=== PATIENT | male | born 1995 | race Hispanic/Latino ===

== ENCOUNTER 2021-02-09 20:30 | Inpatient (IN) | payer SELFPAY ==
[2021-02-09 22:05] LABS: Hemoglobin 13.3 g/dL (14.0-18.0); INR-International Normal Ratio 2.8; Mean Corpuscular Hemoglobin 33.5 pg (27.0-31.0); Mean Corpuscular Volume 98.7 fL (78.0-98.0); Prothrombin Time 30.4 sec (12.0-14.7); RBC Distribution Width 15.2 % (11.5-14.5); Red Blood Cell (RBC) Count 3.96 mill/uL (4.70-6.10); White Blood Cell (WBC) Count 15.1 thou/uL (4.8-10.8)
[2021-02-09 22:06] LABS: PTT 55.4 sec (22.9-36.1)
[2021-02-09 22:12] LABS: Band 31 % (5-11); CRP (Inflammatory) 9.01 mg/dL (= or < 0.5); Eosinophils 1 % (0-10); Lymphocytes 9 % (21-51); MDiff Complete? YES; Mean Platelet Volume 9.4 fL (7.4-10.4); Metamyelocyte 5 % (0-0); Monocytes 4 % (0-10); Neutrophil 50 % (42-75); Platelet Count 34 thou/uL (130-400); Platelet Morphology Comment Appears Decreased
[2021-02-09 22:13] LABS: ALT (SGPT) 127 U/L (8-55); AST (SGOT) 127 U/L (5-34); Albumin 2.2 g/dL (3.5-5.0); Alkaline Phosphatase 171 U/L (40-110); Anion Gap 12 mmol/L (10-20); BUN (Urea Nitrogen) 18 mg/dL (8.9-20.6); Bilirubin, Total 6.7 mg/dL (0.2-1.2); Calc. Creatinine Clearance 0 mL/min (70-130); Calcium 7.4 mg/dL (7.8-10.44); Carbon Dioxide 18 mmol/L (22-29); Chloride 100 mmol/L (98-107); Globulin 5.3 g/dL (2.4-3.5); Glucose 90 mg/dL (70-105); Protein, Total 7.5 g/dL (6.0-8.3); Sodium 125 mmol/L (136-145)
[2021-02-09] MEDS ORDERED: Dexamethasone 10 MG/ML VIAL ONE (22:21)
[2021-02-09] MEDS ORDERED: Ketorolac Tromethamine 30 MG/ML VIAL ONE (23:15)
[2021-02-09] MEDS ORDERED: cefTRIAXone\\ROCEPHIN 2 GM VIAL ONE (23:15)
[2021-02-09] MEDS ORDERED: Ondansetron PF 4 MG/2 ML Vial ONE (23:15)
[2021-02-10] MEDS ORDERED: Ondansetron PF 4 MG/2 ML Vial IVP PRN (00:22)
[2021-02-10] MEDS ORDERED: Guaifenesin DM 100-10/5 ML UDCUP PO PRN (00:22)
[2021-02-10] MEDS ORDERED: Bisacodyl 5 MG TAB PO PRN (00:22)
[2021-02-10 00:26] VITALS: BMI 32.6
[2021-02-10] MEDS ORDERED: Calcium Gluconate 4.6 MEQ in Sodium Chloride 0.9% 100 ML IVPB SCH (00:27)
[2021-02-10] MEDS ORDERED: Sodium Bicarbonate 150 MEQ in Dextrose 5% in Water 1,000 ML IV SCH ×2 (01:00→11:15)
[2021-02-10 06:45] LABS: Hemoglobin 12.4 g/dL (14.0-18.0); Mean Corpuscular HGB CONC 33.5 g/dL (32.0-36.0); Mean Corpuscular Hemoglobin 33.3 pg (27.0-31.0); Mean Corpuscular Volume 99.4 fL (78.0-98.0); RBC Distribution Width 15.3 % (11.5-14.5); Red Blood Cell (RBC) Count 3.72 mill/uL (4.70-6.10); White Blood Cell (WBC) Count 9.8 thou/uL (4.8-10.8)
[2021-02-10 07:02] LABS: ALT (SGPT) 102 U/L (8-55); AST (SGOT) 105 U/L (5-34); Albumin 1.8 g/dL (3.5-5.0); Alkaline Phosphatase 117 U/L (40-110); Anion Gap 13 mmol/L (10-20); BUN (Urea Nitrogen) 19 mg/dL (8.9-20.6); Bilirubin, Total 5.8 mg/dL (0.2-1.2); CK (CPK) 660 U/L (30-200); Calc. Creatinine Clearance 155 mL/min (70-130); Calcium 7.3 mg/dL (7.8-10.44); Carbon Dioxide 18 mmol/L (22-29); Chloride 101 mmol/L (98-107); Globulin 4.4 g/dL (2.4-3.5); Glucose 93 mg/dL (70-105); Potassium 5.1 mmol/L (3.5-5.1); Protein, Total 6.2 g/dL (6.0-8.3); Sodium 127 mmol/L (136-145)
[2021-02-10 07:03] LABS: Band 30 % (5-11); Lymphocytes 7 % (21-51); MDiff Complete? YES; Mean Platelet Volume 10.1 fL (7.4-10.4); Metamyelocyte 17 % (0-0); Monocytes 14 % (0-10); Neutrophil 32 % (42-75); Platelet Count 22 thou/uL (130-400); Platelet Morphology Comment Appears Decreased
[2021-02-10] MEDS ORDERED: Famotidine 20 MG TAB PO SCH (09:00)
[2021-02-10] MEDS ORDERED: Prevnar 13-Val Conj/PF 0.5 ML SYRINGE IM ONE (09:00)
[2021-02-10 10:22] LABS: Bacteria/HPF None Seen HPF (None Seen); Bilirubin Negative (Negative); Blood, Urine 2+ (Negative); Clarity Clear (Clear); Glucose, Urine (Dipstick) Normal (Negative); Ketone, Urine Negative (Negative); Leukocyte Negative Leu/uL (Negative); Nitrite Negative (Negative); Protein, Urine (Dipstick) Negative (Neg-Trace); Specific Gravity, Urine 1.018 (1.002-1.036); Squamous Epithelial None Seen HPF (0-3); Urobilinogen 3 mg/dL (Less than 2); WBC/HPF 0-3 HPF (0-3); pH, Urine 6.5 (5.0-9.0)
[2021-02-10 10:25] LABS: Urine Culture Reflex No No
[2021-02-10] MEDS ORDERED: Phytonadione 5 MG in Sodium Chloride 0.9% 50 ML IVPB SCH (11:00)
[2021-02-10 11:51] LABS: Amphetamine Not Detected (NotDetected); Barbiturates Screen Not Detected (NotDetected); Benzodiazepine Screen Not Detected (NotDetected); Cocaine Metabolite Screen Not Detected (NotDetected); Medtox Control Line Valid? VALID (VALID); Medtox Reader # READER 1; Methadone Not Detected (NotDetected); Methamphetamine Not Detected (NotDetected); Opiate Screen Not Detected (NotDetected); Oxycodone Screen Not Detected (NotDetected); Phencyclidine (PCP) Not Detected (NotDetected); THC/Cannabinoid Screen Detected (NotDetected); Tricyclic Screen Not Detected (NotDetected)
[2021-02-10] MEDS: Albumin 25% 25 GM/100 ML BOT IVPB SCH ×2 (12:26→17:18)
[2021-02-10 12:31] LABS: Anion Gap 11 mmol/L (10-20); BUN (Urea Nitrogen) 22 mg/dL (8.9-20.6); Calc. Creatinine Clearance 157 mL/min (70-130); Calcium 7.3 mg/dL (7.8-10.44); Carbon Dioxide 19 mmol/L (22-29); Chloride 99 mmol/L (98-107); Glucose 146 mg/dL (70-105); Potassium 4.6 mmol/L (3.5-5.1); Sodium 124 mmol/L (136-145)
[2021-02-10 12:33] LABS: Complement-C4 6.4 mg/dL (15-53)
[2021-02-10] MEDS ORDERED: Sodium Bicarbonate Tab 325 MG TAB PO SCH (13:00)
[2021-02-10 17:37] LABS: Anion Gap 10 mmol/L (10-20); BUN (Urea Nitrogen) 24 mg/dL (8.9-20.6); Calc. Creatinine Clearance 148 mL/min (70-130); Calcium 7.7 mg/dL (7.8-10.44); Carbon Dioxide 20 mmol/L (22-29); Chloride 100 mmol/L (98-107); Glucose 111 mg/dL (70-105); Potassium 5.1 mmol/L (3.5-5.1); Sodium 125 mmol/L (136-145)
[2021-02-10] MEDS: Sodium Bicarbonate Tab 325 MG TAB PO SCH (19:38)
[2021-02-10] MEDS: Mycophenolate 250 MG CAP PO SCH (20:02)
[2021-02-10 20:51] LABS: Anion Gap 12 mmol/L (10-20); BUN (Urea Nitrogen) 27 mg/dL (8.9-20.6); Calc. Creatinine Clearance 133 mL/min (70-130); Calcium 7.6 mg/dL (7.8-10.44); Carbon Dioxide 20 mmol/L (22-29); Chloride 98 mmol/L (98-107); Glucose 142 mg/dL (70-105); Potassium 4.8 mmol/L (3.5-5.1); Sodium 125 mmol/L (136-145)
[2021-02-10] MEDS: cefTRIAXone\\ROCEPHIN 1 GM in Sodium Chloride 0.9% 100 ML IVPB SCH (22:27)
[2021-02-11] MEDS: Albumin 25% 25 GM/100 ML BOT IVPB SCH ×3 (00:05→11:08)
[2021-02-11 07:13] LABS: Hemoglobin 11.3 g/dL (14.0-18.0); Mean Corpuscular HGB CONC 33.2 g/dL (32.0-36.0); Mean Corpuscular Hemoglobin 32.9 pg (27.0-31.0); Mean Corpuscular Volume 99.2 fL (78.0-98.0); Platelet Count 32 thou/uL (130-400); RBC Distribution Width 15.3 % (11.5-14.5); Red Blood Cell (RBC) Count 3.43 mill/uL (4.70-6.10); White Blood Cell (WBC) Count 11.6 thou/uL (4.8-10.8)
[2021-02-11 07:21] LABS: ALT (SGPT) 72 U/L (8-55); AST (SGOT) 75 U/L (5-34); Albumin 2.6 g/dL (3.5-5.0); Alkaline Phosphatase 67 U/L (40-110); Anion Gap 9 mmol/L (10-20); BUN (Urea Nitrogen) 30 mg/dL (8.9-20.6); Bilirubin, Total 4.5 mg/dL (0.2-1.2); Calc. Creatinine Clearance 154 mL/min (70-130); Calcium 7.8 mg/dL (7.8-10.44); Carbon Dioxide 24 mmol/L (22-29); Chloride 100 mmol/L (98-107); Globulin 3.6 g/dL (2.4-3.5); Glucose 111 mg/dL (70-105); Potassium 4.9 mmol/L (3.5-5.1); Protein, Total 6.2 g/dL (6.0-8.3); Sodium 128 mmol/L (136-145)
[2021-02-11 07:24] LABS: INR-International Normal Ratio 2.9; Prothrombin Time 31.4 sec (12.0-14.7)
[2021-02-11] MEDS: Mycophenolate 250 MG CAP PO SCH ×2 (08:46→20:27)
[2021-02-11] MEDS: Sodium Bicarbonate Tab 325 MG TAB PO SCH ×3 (08:46→20:26)
[2021-02-11] MEDS ORDERED: HYDROcodone/Acetaminophen 10/325 mg Tablet PO PRN (08:58)
[2021-02-11] MEDS ORDERED: HYDROcodone/Acetaminophen 5/325 mg Tablet PO PRN (08:58)
[2021-02-11] MEDS ORDERED: predniSONE 20 MG TAB PO SCH (13:45)
[2021-02-11] MEDS: cefTRIAXone\\ROCEPHIN 1 GM in Sodium Chloride 0.9% 100 ML IVPB SCH (23:26)
[2021-02-12 06:03] LABS: Hemoglobin 11.6 g/dL (14.0-18.0); Mean Corpuscular HGB CONC 33.8 g/dL (32.0-36.0); Mean Corpuscular Hemoglobin 33.9 pg (27.0-31.0); Mean Platelet Volume 10.5 fL (7.4-10.4); Platelet Count 41 thou/uL (130-400); RBC Distribution Width 15.4 % (11.5-14.5); Red Blood Cell (RBC) Count 3.43 mill/uL (4.70-6.10); White Blood Cell (WBC) Count 13.2 thou/uL (4.8-10.8)
[2021-02-12 06:05] LABS: INR-International Normal Ratio 2.6; Prothrombin Time 28.7 sec (12.0-14.7)
[2021-02-12 06:26] LABS: ALT (SGPT) 66 U/L (8-55); AST (SGOT) 67 U/L (5-34); Albumin 2.6 g/dL (3.5-5.0); Alkaline Phosphatase 85 U/L (40-110); Anion Gap 9 mmol/L (10-20); BUN (Urea Nitrogen) 27 mg/dL (8.9-20.6); Bilirubin, Total 4.4 mg/dL (0.2-1.2); Calc. Creatinine Clearance 195 mL/min (70-130); Carbon Dioxide 23 mmol/L (22-29); Chloride 106 mmol/L (98-107); Globulin 3.7 g/dL (2.4-3.5); Glucose 115 mg/dL (70-105); Potassium 4.6 mmol/L (3.5-5.1); Protein, Total 6.3 g/dL (6.0-8.3); Sodium 133 mmol/L (136-145)
[2021-02-12] MEDS: Phytonadione 5 MG TAB PO SCH (08:31)
[2021-02-12] MEDS: predniSONE 20 MG TAB PO SCH (08:33)
[2021-02-12] MEDS: Mycophenolate 250 MG CAP PO SCH ×2 (08:33→21:14)
[2021-02-12] MEDS: Cefdinir 300 MG CAP PO SCH ×2 (08:34→21:14)
[2021-02-12] MEDS: Sodium Bicarbonate Tab 325 MG TAB PO SCH ×2 (08:34→14:19)
[2021-02-13 06:27] LABS: INR-International Normal Ratio 2.5; Prothrombin Time 27.6 sec (12.0-14.7)
[2021-02-13] MEDS: Phytonadione 5 MG TAB PO SCH (07:26)
[2021-02-13] MEDS: predniSONE 20 MG TAB PO SCH (08:06)
[2021-02-13] MEDS: Cefdinir 300 MG CAP PO SCH (08:07)
[2021-02-13] MEDS: Mycophenolate 250 MG CAP PO SCH (08:07)
[2021-02-13 08:09] LABS: ALT (SGPT) 72 U/L (8-55); AST (SGOT) 72 U/L (5-34); Albumin 2.3 g/dL (3.5-5.0); Alkaline Phosphatase 97 U/L (40-110); Anion Gap 4 mmol/L (10-20); BUN (Urea Nitrogen) 22 mg/dL (8.9-20.6); Bilirubin, Total 3.8 mg/dL (0.2-1.2); Calc. Creatinine Clearance 206 mL/min (70-130); Calcium 7.8 mg/dL (7.8-10.44); Carbon Dioxide 26 mmol/L (22-29); Chloride 106 mmol/L (98-107); Globulin 3.9 g/dL (2.4-3.5); Glucose 103 mg/dL (70-105); Potassium 4.3 mmol/L (3.5-5.1); Protein, Total 6.2 g/dL (6.0-8.3); Sodium 132 mmol/L (136-145)
[2021-02-13 14:22] VITALS: BP 101/52; TEMP 98.4
== END 2021-02-13 14:49 | disposition home or self-care (01) | DRG 441 ==
LOC: ERS 20:30 → 2NO 23:23 → T4-B 02-10 02:10
PROVIDERS: ADMIT Internal Medicine; ATTEND Internal Medicine
DX: K75.4 Autoimmune hepatitis (principal); K72.00 Acute and subacute hepatic failure without coma; A40.9 Streptococcal sepsis, unspecified; E22.2 Syndrome of inappropriate secretion of antidiuretic hormone; E87.2 Acidosis; M62.82 Rhabdomyolysis; D68.4 Acquired coagulation factor deficiency; Z20.822 Contact with and (suspected) exposure to COVID-19; J02.0 Streptococcal pharyngitis; D69.6 Thrombocytopenia, unspecified; E83.51 Hypocalcemia; Z91.120 Patient's intentional underdosing of medication regimen due to financial hardship; Z79.899 Other long term (current) drug therapy
CPT/HCPCS: 36415; 80053; 80306; 81001; 82085; 82533; 82550; 83930; 83935; 84443; 84550; 85025; 85027; 85610; 85652; 85730; 86140; 86160; 96365; 96375; J0696; J1100; J1885; J2001; J2405; J3430; J3490; J7070; J7512; J7517; P9047

== ENCOUNTER 2021-03-17 08:09 | Outpatient (CLI) | payer OTHER | END 2021-03-17 08:10 | disposition home or self-care (01) | LOC: BICULT 08:09 | PROVIDERS: ATTEND Internal Medicine | DX: K75.4 Autoimmune hepatitis (principal); K76.9 Liver disease, unspecified | CPT/HCPCS: 76705 ==

== ENCOUNTER 2021-08-05 14:41 | Inpatient (IN) | payer SELFPAY ==
[~2021-08-05 14:41] MED LIST: Iopamidol-370 76% 500 ML 1 ML ONE
[2021-08-05] MEDS ORDERED: Acetaminophen 500 MG TAB ONE ×2 (15:11)
[2021-08-05 15:14] LABS: Hemoglobin 14.9 g/dL (14.0-18.0); Mean Corpuscular HGB CONC 32.9 g/dL (32.0-36.0); Mean Corpuscular Hemoglobin 30.3 pg (27.0-31.0); Mean Corpuscular Volume 92.2 fL (78.0-98.0); Red Blood Cell (RBC) Count 4.92 mill/uL (4.70-6.10); White Blood Cell (WBC) Count 22.9 thou/uL (4.8-10.8)
[2021-08-05 15:21] LABS: INR-International Normal Ratio 1.5; PTT 42.4 sec (22.9-36.1); Prothrombin Time 18.8 sec (12.0-14.7)
[2021-08-05 15:25] LABS: Bacteria/HPF None Seen HPF (None Seen); Bilirubin Negative (Negative); Blood, Urine 1+ (Negative); Clarity Clear (Clear); Glucose, Urine (Dipstick) Normal (Negative); Ketone, Urine Negative (Negative); Leukocyte Negative Leu/uL (Negative); Nitrite Negative (Negative); Protein, Urine (Dipstick) Negative (Neg-Trace); RBC/HPF 0-3 HPF (0-3); Specific Gravity, Urine 1.023 (1.002-1.036); Squamous Epithelial None Seen HPF (0-3); WBC/HPF 0-3 HPF (0-3)
[2021-08-05 15:25] LABS: ALT (SGPT) 131 U/L (8-55); AST (SGOT) 117 U/L (5-34); Alkaline Phosphatase 134 U/L (40-110); Anion Gap 9 mmol/L (10-20); BUN (Urea Nitrogen) 11 mg/dL (8.9-20.6); Bilirubin, Total 2.1 mg/dL (0.2-1.2); Calc. Creatinine Clearance 0 mL/min (70-130); Calcium 8.3 mg/dL (7.8-10.44); Carbon Dioxide 24 mmol/L (22-29); Chloride 100 mmol/L (98-107); Glucose 101 mg/dL (70-105); Potassium 4.1 mmol/L (3.5-5.1); Sodium 129 mmol/L (136-145)
[2021-08-05 15:32] LABS: Band 44 % (5-11); Lymphocytes 10 % (21-51); MDiff Complete? YES; Mean Platelet Volume 7.7 fL (7.4-10.4); Monocytes 9 % (0-10); Neutrophil 30 % (42-75); Platelet Count 104 thou/uL (130-400); Platelet Morphology Comment Appears Decreased; Polychromasia SLIGHT = 2-3 cells (100X) (0-2/hpf); Reactive Lymphocytes 7 % (0-10)
[2021-08-05] MEDS ORDERED: Cefepime 1 GM VIAL ONE (15:55)
[2021-08-05] MEDS ORDERED: Vancomycin 1 GM/200 ML BAG ONE (17:06)
[2021-08-05] MEDS ORDERED: VANCOMYCIN 2 GRAM/400 ML BAG 2 GM in Premix Bag 1 BAG IVPB SCH (17:15)
[2021-08-05] MEDS ORDERED: Bisacodyl 10 MG SUPP PR PRN (17:18)
[2021-08-05] MEDS ORDERED: Ondansetron PF 4 MG/2 ML Vial IVP PRN (17:18)
[2021-08-05] MEDS ORDERED: Ondansetron ODT 4 MG TAB PO PRN (17:18)
[2021-08-05] MEDS ORDERED: HYDROcodone/Acetaminophen 5/325 mg Tablet PO PRN (17:18)
[2021-08-05] MEDS ORDERED: Piperacillin/Tazobactam 3.375 GM in Sodium Chloride 0.9% 100 ML IVPB SCH ×2 (18:00→20:00)
[2021-08-05] MEDS: Clindamycin/D5W 900 MG in Premix Bag 1 BAG IVPB SCH (18:44)
[2021-08-05 20:12] VITALS: BMI 29.5
[2021-08-05] MEDS: Piperacillin/Tazobactam 3.375 GM in Sodium Chloride 0.9% 100 ML IVPB SCH (23:29)
[2021-08-06] MEDS: Clindamycin/D5W 900 MG in Premix Bag 1 BAG IVPB SCH ×3 (03:35→16:38)
[2021-08-06] MEDS: Acetaminophen 325 MG TAB PO PRN ×3 (05:04→17:44)
[2021-08-06 07:08] LABS: #Lymphocytes 2.2 thou/uL (1.20-3.40); #Monocytes 1.3 thou/uL (0.11-0.59); #Neutrophils 9.2 thou/uL (1.40-6.50); %Basophils 0.2 % (0.0-1.0); %Eosinophils 0.1 % (0.0-10.0); %Lymphocytes 17.1 % (21.0-51.0); %Monocytes 10.4 % (0.0-10.0); %Neutrophils 72.1 % (42.0-75.0); Hemoglobin 11.8 g/dL (14.0-18.0); Mean Corpuscular HGB CONC 33.4 g/dL (32.0-36.0); Mean Corpuscular Hemoglobin 30.5 pg (27.0-31.0); Mean Corpuscular Volume 91.2 fL (78.0-98.0); Platelet Count 72 thou/uL (130-400); RBC Distribution Width 14.6 % (11.5-14.5); Red Blood Cell (RBC) Count 3.87 mill/uL (4.70-6.10); White Blood Cell (WBC) Count 12.8 thou/uL (4.8-10.8)
[2021-08-06 07:10] LABS: Anion Gap 8 mmol/L (10-20); BUN (Urea Nitrogen) 11 mg/dL (8.9-20.6); Calc. Creatinine Clearance 143 mL/min (70-130); Calcium 7.6 mg/dL (7.8-10.44); Carbon Dioxide 22 mmol/L (22-29); Chloride 102 mmol/L (98-107); Glucose 83 mg/dL (70-105); Sodium 128 mmol/L (136-145)
[2021-08-06] MEDS: Enoxaparin Sodium 40 MG/0.4 ML SYRINGE SC SCH (07:56)
[2021-08-06] MEDS: Piperacillin/Tazobactam 3.375 GM in Sodium Chloride 0.9% 100 ML IVPB SCH ×3 (07:57→23:40)
[2021-08-06 14:27] LABS: SARS-CoV-2 PCR by NAA Not Detected (NotDetected)
[2021-08-06] MEDS: Mycophenolate 250 MG CAP PO SCH (20:20)
[2021-08-07] MEDS: Clindamycin/D5W 900 MG in Premix Bag 1 BAG IVPB SCH ×2 (03:41→09:48)
[2021-08-07] MEDS: Acetaminophen 325 MG TAB PO PRN ×2 (03:47→16:40)
[2021-08-07 06:30] LABS: #Lymphocytes 1.7 thou/uL (1.20-3.40); #Monocytes 0.7 thou/uL (0.11-0.59); #Neutrophils 4.2 thou/uL (1.40-6.50); %Basophils 0.2 % (0.0-1.0); %Eosinophils 0.2 % (0.0-10.0); %Lymphocytes 25.9 % (21.0-51.0); %Monocytes 10.1 % (0.0-10.0); %Neutrophils 63.6 % (42.0-75.0); Hemoglobin 11.8 g/dL (14.0-18.0); Mean Corpuscular HGB CONC 33.4 g/dL (32.0-36.0); Mean Corpuscular Hemoglobin 30.6 pg (27.0-31.0); Mean Corpuscular Volume 91.6 fL (78.0-98.0); Mean Platelet Volume 7.3 fL (7.4-10.4); Platelet Count 74 thou/uL (130-400); RBC Distribution Width 14.7 % (11.5-14.5); Red Blood Cell (RBC) Count 3.84 mill/uL (4.70-6.10); White Blood Cell (WBC) Count 6.5 thou/uL (4.8-10.8)
[2021-08-07 06:53] LABS: Anion Gap 7 mmol/L (10-20); BUN (Urea Nitrogen) 11 mg/dL (8.9-20.6); CRP (Inflammatory) 8.03 mg/dL (= or < 0.5); Calc. Creatinine Clearance 163 mL/min (70-130); Carbon Dioxide 25 mmol/L (22-29); Chloride 105 mmol/L (98-107); Glucose 89 mg/dL (70-105); Potassium 4.1 mmol/L (3.5-5.1); Sodium 133 mmol/L (136-145)
[2021-08-07] MEDS: Mycophenolate 250 MG CAP PO SCH ×2 (08:32→20:32)
[2021-08-07] MEDS: predniSONE 20 MG TAB PO SCH (08:32)
[2021-08-07] MEDS: Enoxaparin Sodium 40 MG/0.4 ML SYRINGE SC SCH (08:36)
[2021-08-07] MEDS: Piperacillin/Tazobactam 3.375 GM in Sodium Chloride 0.9% 100 ML IVPB SCH (11:54)
[2021-08-07] MEDS ORDERED: Piperacillin/Tazobactam 3.375 GM in Sodium Chloride 0.9% 100 ML IVPB SCH (12:00)
[2021-08-07] MEDS: Doxycycline 100 MG CAP PO SCH (20:32)
[2021-08-07] MEDS: Amoxicillin/Potassium Clav 875 MG TAB PO SCH (20:32)
[2021-08-08] MEDS: Amoxicillin/Potassium Clav 875 MG TAB PO SCH (08:44)
[2021-08-08] MEDS: predniSONE 20 MG TAB PO SCH (08:44)
[2021-08-08] MEDS: Doxycycline 100 MG CAP PO SCH (08:44)
[2021-08-08] MEDS: Mycophenolate 250 MG CAP PO SCH (08:44)
[2021-08-08] MEDS: Enoxaparin Sodium 40 MG/0.4 ML SYRINGE SC SCH (08:45)
[2021-08-08 10:27] LABS: Reference Lab Name LABCORP
[2021-08-08 10:28] LABS: Ref Lab Test Ordered RICKETTSIA IGG/M
[2021-08-08 16:11] VITALS: BP 113/74; TEMP 97.9
== END 2021-08-08 16:15 | disposition home or self-care (01) | DRG 872 ==
LOC: ERS 14:41 → T4-A 16:50
PROVIDERS: ADMIT Hospitalist; ATTEND Internal Medicine
DX: A41.9 Sepsis, unspecified organism (principal); L03.114 Cellulitis of left upper limb; K76.6 Portal hypertension; E87.1 Hypo-osmolality and hyponatremia; Z20.822 Contact with and (suspected) exposure to COVID-19; K75.4 Autoimmune hepatitis; K74.60 Unspecified cirrhosis of liver; L73.9 Follicular disorder, unspecified; I88.8 Other nonspecific lymphadenitis; Z79.51 Long term (current) use of inhaled steroids; Z79.899 Other long term (current) drug therapy
CPT/HCPCS: 36415; 74177; 80048; 80053; 81003; 81015; 83605; 85025; 85610; 85730; 86140; 86611; 87040; 87086; 94760; J0692; J1650; J2543; J3370; J3490; J7512; J7517; Q9967; U0003; U0005